=== PATIENT | female | born 1975 | race Caucasian/White ===

== ENCOUNTER → 2020-05-12 10:34 | Outpatient (CLI) | payer OTHER, SELFPAY ==
[2020-05-12 13:17] LABS: Coronavirus 19 IgG Antibody Negative (Negative); Coronavirus 19 IgM Antibody Negative (Negative)
== END ==
PROVIDERS: Visit Provider Internal Medicine Gastroenterology
DX: Z01.818 Encounter for other preprocedural examination (principal); K86.1 Other chronic pancreatitis
CPT/HCPCS: 36415; 86328

== ENCOUNTER 2020-05-14 10:51 | Day surgery (SDC) | payer OTHER, SELFPAY ==
[2020-05-10 11:15] VITALS: BMI 28.0
[2020-05-14] VITALS (10 sets, daily range): BP systolic 150–202; BP diastolic 72–106; PULSE 54–74; RESP 18; TEMP 36.1–36.7; O2SAT 94–99
--- NOTE | 2020-05-14 13:01 | P.PN_ITS ---
[facility] Anesthesia Checklist - Patient Identification Patient Identification: Arm Band - Structural Data Admitted From: Home Planned Operative Procedure/s: ERCP Consent for Planned Operative Procedure(s) Verified: Yes Verified Documents: Surgical Consent, History and Physical - NPO Status Verified Time NPO: 00:00 - Additional verifications Anesthesia Reactions: No - Airway Assessment C-Spine Mobility Assessed: Yes (mp2) TMJ Mobility Assessed: Yes Dentition: Good Dentition - Neurological Assessment Level of Consciousness: Awake, Alert - Anesthesia Plan Anesthesia Risk discussed: Yes Anesthesia Plan: Verified ASA Class: II Anesthesia Type: MAC [facility] History I have reviewed the patient's past medical history: Yes Medical History: Reports:: Asthma, Hypertension Denies:: Cancer, Diabetes Mellitus Type 1, Diabetes Mellitus Type 2, Internal Pacemaker, MRSA, Seizures *Have you ever received a pneumonia vaccine?: No *Have you received a flu vaccine this season?: No Other Medical History: Reports: Hypothyroidism, Other Anesthesia experience/problems:: nac Laterality Cases: Bilateral: Cataract Other Surgeries: Yes: Cholecystectomy, Hysterectomy-Total, Tubal Ligation. No: Pacemaker Amputation: No Fractures: No - *Social History Last grade of school completed: GED Alcohol Intake: never Substance Use Type: denies use *Occupational Status:: unemployed Housing: house Household Members: spouse *Travel in the last 8 weeks: None Family Hx:: Cancer, Diabetes, Heart Attack, Hyperlipidemia, Hypertension
--- NOTE | 2020-05-14 13:34 | FL_ITS ---
PROCEDURE: FL ERCP CLINICAL INDICATION: history of pancreatitis COMPARISON: No exams were available for comparison FINDINGS: Fluoroscopy time: 4 minutes and 15 seconds Two images submitted during the procedure shows mild prominence of the common bile duct. There has been a prior cholecystectomy. There is narrowing of the distal CBD at the ampulla which could be related to stricture etiology indeterminate. No obvious internal filling defects that would indicate a common duct stone. Prior cholecystectomy IMPRESSION: Possible stricture at the ampulla etiology indeterminate Dictated by: Chris Zaman MD 05/18/2020 12:08 Chris Zaman MD in [place] 05/18/2020 12:08
--- NOTE | 2020-05-14 13:55 | P.PCN_ITS ---
[facility] Procedure Note Procedure Note:: ERCP procedure Report: Endoscopic retrograde cholangiography Endoscopist: Dallas Connors II, MD Referring Physician: Tanvir Garsia MD/Rashi Way MD Date of Procedure: May 14, 2020 Equipment: Olympus 180 side viewing endoscope duodenoscope Sedation: MAC sedation Indication: Mrs. Varner is a 44-year-old female who has had 4 episodes of acute pancreatitis within the last couple of years. Her initial bout was 2 years ago and her last bout was earlier this year. She reports no alcohol use. She did have cholecystectomy in 1999. She did get hospitalized in December of this year at [facility]. She did have significant elevation of her liver chemistries as well. Her CAT scan did show some prominence of the biliary system. The patient did have an MRCP on March 29, 2020. There was no evidence of any intra-or extrahepatic biliary ductal dilation or choledocholithiasis. Procedure: Prior to the procedure, a history and physical exam was performed, and patient's medications and allergies were reviewed. The risks, benefits and alternatives of the sedation and procedure were discussed with the patient. All questions were answered and informed consent was obtained. The patient was brought to the fluoroscopic radiology room. Patient identification and proposed procedure were verified by the physician and the nurse. The patient was placed in a swimmer's position between left lateral decubitus and prone position and the scope was passed under direct vision. Throughout the procedure, the patient's blood pressure, pulse, and oxygen saturations were monitored continuously. The ERCP was accomplished without difficulty. The patient tolerated the procedure well. Findings: The side-viewing duodenal scope was passed directly into the upper esophagus and advanced to the second portion of the duodenum. The esophagus, stomach and duodenum were grossly normal. There was mild reactive gastropathy of the antrum of the stomach. The ampulla was well visualized. The common bile duct was cannulated. The cholangiogram did show borderline dilation of the biliary system at 7 mm. There was also great difficulty and selective cannulation most likely secondary to some stricturing at the sphincter of Oddi or sphincter of Oddi dysfunction. There was some cannulation with submucosal contrast dye and this made cannulation even more difficult. The pancreatic duct was not cannulated (intentionally) to prevent pancreatitis. Impression: 1. 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 This was not performed today because of submucosal injection ampullary and some ampullary heme. Will reschedule ERCP.
--- NOTE | 2020-05-14 14:56 | PC.NURSE ---
pt has small cut on lower lip from bite block
--- NOTE | 2020-05-14 15:08 | PC.NURSE ---
Allan Villarreal CRNA at bedside to assess pt lower lip. Instructed to apply ice pack.
--- NOTE | 2020-05-14 15:36 | PC.NURSE ---
li ingram, field support technician at bedside to assess pt pain and condition
--- NOTE | 2020-05-14 16:13 | SUR.PHASEII ---
Elixir 16.25mg given per order.
--- NOTE | 2020-05-14 16:38 | PC.NURSE ---
Anesthesia spoke to . Anesthesia ok for pt to be dc'd home in care of . Pt and instructed to watch for s/s of infection or bleeding. Notify MD of any concerns. instructed pt and that she should not be alone tonight. Pt only to have sips of water and ice chips. VSS. Pt stating pain of 3. Both pt and stated they would prefer to rest at home. Agreed if there was difficulty breathing, increased pain, bleeding that they would seek medical attention.
== END 2020-05-14 16:24 | disposition home or self-care (01) ==
LOC: OUTP 10:59
PROVIDERS: Visit Provider Internal Medicine Gastroenterology
PROC: (CPT 43260; principal; 2020-05-14 11:30)
DX: K92.89 Other specified diseases of the digestive system; Z87.19 Personal history of other diseases of the digestive system; I10 Essential (primary) hypertension; J45.909 Unspecified asthma, uncomplicated; E03.9 Hypothyroidism, unspecified; Z90.49 Acquired absence of other specified parts of digestive tract; Z90.710 Acquired absence of both cervix and uterus; Z82.49 Family history of ischemic heart disease and other diseases of the circulatory system; Z83.438 Family history of other disorder of lipoprotein metabolism and other lipidemia; Z83.3 Family history of diabetes mellitus; Z80.9 Family history of malignant neoplasm, unspecified; Z82.3 Family history of stroke
CPT/HCPCS: 43260; 74330; J2405; Q9967